=== PATIENT | female | born 1990 | race Caucasian/White ===

== ENCOUNTER 2017-01-16 09:25 | Day surgery (SDC) | payer BC ==
[2017-01-16] MEDS ORDERED: MIDAZOLAM 2 MG/2 ML VIAL ONE (10:29)
[2017-01-16] MEDS ORDERED: fentaNYL 100 MCG/2 ML INJ ONE (10:30)
[2017-01-16] MEDS ORDERED: MIDAZOLAM 2 MG/2 ML VIAL IVP ONE (10:45)
[2017-01-16] MEDS ORDERED: NS 500 ML IV ONE (10:45)
[2017-01-16] MEDS ORDERED: fentaNYL 100 MCG/2 ML INJ IVP ONE (10:45)
--- NOTE | 2017-01-16 13:17 | ECHO ---
[id number] + + [address] : : [facility] [address] : : [phone] + + Transesophageal Echocardiographic Report + --------+ :Name: LUCRETIA CARROLL LStudy Date: 01/16/2017 11:47 AM : : Hospital Admission Number: [id number] Locat ion: CVC: :: 1990 Gender: Female : :Age: 26 yrs Race: WH : :Reason For Study: Eval for PFO vs. ASD : + --------+ Doppler Measurements \T\ Calculations TR max olayinka: 267.4 cm/sec TR max P.6 mmHg RAP systole: 5.0 mmHg RVSP(TR): 33.6 mmHg Left Ventricle The left ventricle is normal in size. Left ventricular systolic function is normal. Right Ventricle The right ventricle is normal size. The right ventricular systolic function is normal. Atria Injection of contrast documented no interatrial shunt. No thrombus is detected in the left atrial appendage. The left atrial size is normal. Right atrial size is normal. Mitral Valve The mitral valve leaflets appear normal. There is no evidence of stenosis, fluttering, or prolapse. There is trace mitral regurgitation. Tricuspid Valve Normal tricuspid valve. There is mild tricuspid regurgitation. Right ventricular systolic pressure is normal. Aortic Valve The aortic valve is trileaflet. There is no aortic insufficiency. Pulmonic Valve The pulmonic valve is not well visualized. Conclusion A 2D transesophageal echocardiogram with color flow Doppler was performed. The left ventricle is normal in size. Left ventricular systolic function is normal. The right ventricle is normal size. Normal atrial sizes. Normal appearing valvular structures. There is trace mitral regurgitation. There is mild tricuspid regurgitation. Right ventricular systolic pressure is normal at 33.6 mmHg. Injection of agitated saline contrast was negative for intracardiac shunt. Final Reading Physician: Shandra Nye signed on 01/16/2017 01:15 PM Ordering Physician: Eddie Ortiz Performed By: Eddie Ortiz MD
== END 2017-01-16 13:00 | disposition home or self-care (01) ==
LOC: FCATH 09:25
PROVIDERS: ATTEND Internal Medicine Interventional Cardiology
PROC: B245ZZ4 Ultrasonography of Left Heart, Transesophageal (ICD-10-PCS; principal; 2017-01-16)
DX: Q21.1 Atrial septal defect (principal)
CPT/HCPCS: J2250; J3010